=== PATIENT | male | born 1960 | race Two or more races ===

== ENCOUNTER 2019-07-23 14:53 | Emergency (ER) | payer SELFPAY ==
[~2019-07-23] VITALS: Ht 154.9 cm; Wt 70.0 kg
[~2019-07-23 14:53] MED LIST: AMOX-422 PO; NO HOME MEDS; NORCO10T PO; PANT40TA39 PO
[2019-07-23] MEDS ORDERED: normal saline 1000ML IV soln IVB ONE (15:50)
[2019-07-23] MEDS ORDERED: ketorolac tromethamine 15mg/ml inj. IV ONE (15:50)
[2019-07-23 16:19] LABS: BASOPHILS # (AUTO) 0.1 X10'3 (0-0.2); BASOPHILS % (AUTO) 0.7 % (0-1); EOSINOPHILS # (AUTO) 0.3 X10'3 (0-0.9); EOSINOPHILS % (AUTO) 3.2 % (0-6); HEMATOCRIT 43.4 % (42.0-52.0); HEMOGLOBIN 14.7 g/dl (14.0-17.9); LYMPHOCYTES # (AUTO) 2.6 X10'3 (1.1-4.8); LYMPHOCYTES % (AUTO) 30.6 % (21-51); MEAN CORPUSCULAR VOLUME 88.2 FL (78-98); MEAN PLATELET VOLUME 7.8 FL (7.4-10.4); MONOCYTES # (AUTO) 0.6 X10'3 (0-0.9); MONOCYTES % (AUTO) 7.2 % (2-12); NEUTROPHILS # (AUTO) 4.9 X10'3 (1.8-7.7); NEUTROPHILS % (AUTO) 58.3 % (42-75); PLATELET COUNT 279 X10'3 (140-440); RED BLOOD COUNT 4.91 X10'6 (4.70-6.10); RED CELL DISTRIBUTION WIDTH 13.4 % (11.5-14.5); WHITE BLOOD COUNT 8.3 X10'3 (4.5-11.0)
[2019-07-23 16:38] LABS: ALANINE AMINOTRANSFERASE 28 U/L (12-78); ALBUMIN 3.8 G/DL (3.4-5.0); ALKALINE PHOSPHATASE 104 IU/L (46-116); ANION GAP 11 (8-16); ASPARTATE AMINO TRANSFERASE 19 U/L (10-37); BILIRUBIN,TOTAL 0.3 MG/DL (0.1-1.0); BLOOD UREA NITROGEN 7 MG/DL (7-18); BUN/CREATININE RATIO 9.1 (5.4-32.0); CALCIUM 8.4 MG/DL (8.5-10.1); CHLORIDE 105 MMOL/L (99-107); CREATININE 0.77 MG/DL (0.60-1.10); GLUCOSE 91 MG/DL (70-104); POTASSIUM 3.8 MMOL/L (3.5-5.1); SODIUM 141 MMOL/L (135-145); TOTAL CARBON DIOXIDE 25.1 MMOL/L (24-32); TOTAL PROTEIN 7.6 G/DL (6.4-8.2); eGFR > 90 ML/MIN
[2019-07-23 18:27] VITALS: BP 137/92
== END 2019-07-23 18:30 | disposition home or self-care (01) ==
LOC: ER 14:54
DX: R42 Dizziness and giddiness (principal); R51 Headache; R07.89 Other chest pain; H53.8 Other visual disturbances; J02.9 Acute pharyngitis, unspecified; E78.00 Pure hypercholesterolemia, unspecified; I10 Essential (primary) hypertension; F10.99 Alcohol use, unspecified with unspecified alcohol-induced disorder; Z77.098 Contact with and (suspected) exposure to other hazardous, chiefly nonmedicinal, chemicals; Z98.890 Other specified postprocedural states; Z79.899 Other long term (current) drug therapy; Y90.9 Presence of alcohol in blood, level not specified
CPT/HCPCS: 36415; 80053; 85025; 93005; 96361; 96374; 99284; J1885; J7030

== ENCOUNTER 2022-02-11 08:52 | Emergency (ER) | payer OTHER ==
[~2022-02-11] VITALS: Ht 152.4 cm; Wt 75.0 kg
[2022-02-11 09:14] VITALS: BP 122/86
--- NOTE | 2022-02-11 10:03 | NUR ---
NOT IN LOBBY
[2022-02-11] MEDS ORDERED: ketorolac trometh. 30mg/ml inj. IM ONE (10:35)
[2022-02-11] MEDS ORDERED: ketorolac trometh inj. 60 MG/2 ML VIAL IM ONE (10:35)
[2022-02-11] MEDS ORDERED: CYCL-1 PO (10:46)
== END 2022-02-11 10:55 | disposition home or self-care (01) ==
LOC: ER 08:53
DX: M54.50 Low back pain, unspecified (principal); G89.29 Other chronic pain; E78.00 Pure hypercholesterolemia, unspecified; I10 Essential (primary) hypertension; Z98.890 Other specified postprocedural states; Z72.89 Other problems related to lifestyle; Z79.2 Long term (current) use of antibiotics; Z79.899 Other long term (current) drug therapy
CPT/HCPCS: 72100; 96372; 99283; J1885

== ENCOUNTER 2022-05-14 10:19 | Emergency (ER) | payer BC, OTHER ==
[~2022-05-14] VITALS: Ht 167.6 cm; Wt 75.0 kg
[~2022-05-14 10:19] MED LIST changes: +CYCL-1 PO
[2022-05-14 12:26] LABS: BASOPHILS % (AUTO) 0.4 % (0-1); EOSINOPHILS # (AUTO) 0.1 X10'3 (0-0.9); EOSINOPHILS % (AUTO) 1.5 % (0-6); HEMATOCRIT 42.8 % (42.0-52.0); HEMOGLOBIN 14.4 g/dl (14.0-17.9); LYMPHOCYTES # (AUTO) 2.5 X10'3 (1.1-4.8); LYMPHOCYTES % (AUTO) 33.4 % (21-51); MEAN CORPUSCULAR HEMOGLOBIN 29.3 PG (27.0-31.0); MEAN CORPUSCULAR HGB CONC 33.6 g/dL (33.0-36.5); MEAN CORPUSCULAR VOLUME 87.2 FL (78-98); MEAN PLATELET VOLUME 7.8 FL (7.4-10.4); MONOCYTES # (AUTO) 0.8 X10'3 (0-0.9); MONOCYTES % (AUTO) 11.1 % (2-12); NEUTROPHILS % (AUTO) 53.6 % (42-75); PLATELET COUNT 261 X10'3 (140-440); RED BLOOD COUNT 4.91 X10'6 (4.70-6.10); RED CELL DISTRIBUTION WIDTH 14.2 % (11.5-14.5); WHITE BLOOD COUNT 7.5 X10'3 (4.5-11.0)
[2022-05-14 12:37] LABS: D-DIMER 0.23 MG/L FEU (0-0.50)
[2022-05-14 12:44] LABS: ALANINE AMINOTRANSFERASE 33 U/L (12-78); ALBUMIN 3.6 G/DL (3.4-5.0); ALBUMIN/GLOBULIN RATIO 0.9 (1.1-1.5); ALKALINE PHOSPHATASE 85 IU/L (46-116); ANION GAP 5 (8-16); ASPARTATE AMINO TRANSFERASE 23 U/L (10-37); BILIRUBIN,TOTAL 0.3 MG/DL (0.1-1.0); BLOOD UREA NITROGEN 12 MG/DL (7-18); BUN/CREATININE RATIO 12.8 (5.4-32.0); CALCIUM 8.5 MG/DL (8.5-10.1); CHLORIDE 106 MMOL/L (99-107); CREATININE 0.94 MG/DL (0.60-1.10); GLUCOSE 105 MG/DL (70-104); POTASSIUM 3.8 MMOL/L (3.5-5.1); SODIUM 139 MMOL/L (135-145); TOTAL CARBON DIOXIDE 27.8 MMOL/L (24-32); TOTAL PROTEIN 7.6 G/DL (6.4-8.2); eGFR 82 ML/MIN
[2022-05-14 13:09] VITALS: BP 150/94
--- NOTE | 2022-05-14 13:43 | NUR ---
cleared for dishcarge at this time. advised to follow up with pcp and return if conditon worsens. no other complaints or concerns at this time following dishcarge teaching.
[2022-05-14] MEDS ORDERED: ALBU6.7H9 INH (13:47)
[2022-05-14] MEDS ORDERED: PRED20TA PO (13:47)
== END 2022-05-14 13:53 | disposition home or self-care (01) ==
LOC: ER 10:19
DX: J45.909 Unspecified asthma, uncomplicated (principal); I10 Essential (primary) hypertension; E78.00 Pure hypercholesterolemia, unspecified; Z88.0 Allergy status to penicillin; Z79.899 Other long term (current) drug therapy; Z79.2 Long term (current) use of antibiotics
CPT/HCPCS: 36415; 71045; 80053; 83880; 84484; 85025; 85379; 93005; 99285

== ENCOUNTER 2022-11-23 18:52 | Emergency (ER) | payer BC, MEDICAID, SELFPAY ==
[~2022-11-23] VITALS: Ht 154.9 cm; Wt 80.0 kg
[~2022-11-23 18:52] MED LIST changes: +ALBU6.7H14 INH
[2022-11-23 19:08] VITALS: BP 148/89
[2022-11-23] MEDS ORDERED: NAPR-56 PO (20:47)
[2022-11-23] MEDS ORDERED: DICL100G30 TOP (20:47)
[2022-11-23] MEDS ORDERED: ketorolac trometh inj. 60 MG/2 ML VIAL IM ONE (20:50)
== END 2022-11-23 21:03 | disposition home or self-care (01) ==
LOC: ER 18:53
DX: S83.92XA Sprain of unspecified site of left knee, initial encounter (principal); M25.562 Pain in left knee; E78.00 Pure hypercholesterolemia, unspecified; I10 Essential (primary) hypertension; M19.90 Unspecified osteoarthritis, unspecified site; G89.29 Other chronic pain; Z98.890 Other specified postprocedural states; Z72.89 Other problems related to lifestyle; Z79.2 Long term (current) use of antibiotics; Z79.899 Other long term (current) drug therapy; X58.XXXA Exposure to other specified factors, initial encounter; Y93.89 Activity, other specified; Y92.89 Other specified places as the place of occurrence of the external cause; Y99.8 Other external cause status
CPT/HCPCS: 73564; 96372; 99283; J1885

== ENCOUNTER → 2024-03-17 | Outpatient (CLI) | payer MEDICAID ==
[~2024-03-17] VITALS: Ht 154.9 cm; Wt 77.1 kg
[~2024-03-17] MED LIST changes: +DICL100G59 TOP
[2024-03-17 12:03] VITALS: PULSE 82; RESP 16; O2SAT 97
[2024-03-17] MEDS: albuterol 2.5 MG/3 ML nebule NEB ONE (12:14)
== END | disposition home or self-care (01) ==
LOC: RT 11:26
PROVIDERS: ATTEND Family Medicine
DX: R06.02 Shortness of breath (principal)
CPT/HCPCS: 94060; 94729; 94760

== ENCOUNTER → 2025-03-02 | Outpatient (CLI) | payer MEDICAID ==
[~2025-03-02] MED LIST changes: +GADOTERATE MEGLUMINE 7.5 MMOL/15 ML VIAL IV ONE; +LIDOcaine 1% 30ml preserv. free vial ONE; +LIDOcaine 1%/PF 5ML 10 MG/ML VIAL ONE; +iohexol 300 MG/1 ML 50ml polymer ONE
--- NOTE | 2025-03-02 08:11 | RADIOLOGY REPORT ---
ANGIO ARTHROGRAM (A) Date: 03/02/2025 07:16 AM Clinical History: RIGHT HIP PAIN Comparison: None Procedure: Verbal and written informed consent were obtained from the patient for the procedure of right hip fl uoroscopically guided arthrogram, after the procedure, risks, and benefits of the procedure were expl ained to the patient. Risks include bleeding, infection, reaction to injected medications, and damag e to surrounding anatomic structures. The patient's questions were answered. The patient's most rec ent medical history was reviewed. A time out was performed to verify the patient's name, date of , and correct location of the pro cedure, prior to initiation of the procedure. The patient was placed supine on the fluoroscopic table and the area overlying the right hip was pre pped and draped in the usual sterile fashion. The patient tolerated the procedure well. There were no immediate complications. Home-care instruct ions were reviewed with the patient prior to the patient's discharge from the fluoroscopy suite. The patient verbally affirmed understanding of these instructions. Impression: Technically successful fluoroscopically guided RIGHT HIP arthrogram. The patient was transported to MRI for further imaging at the completion of the procedure. Procedure by Dr. Valdez
--- NOTE | 2025-03-02 11:12 | RADIOLOGY REPORT ---
CLINICAL INFORMATION: 64 years old, Male; PAIN IN RIGHT HIP. TECHNIQUE: Multisequence multiplanar MR arthrogram images of the right hip were obtained after the uneventful intra-articular injection of dilute gadolinium contrast under fluoroscopic guidance. Refer to the separately dictated conventional arthrogram report for details concerning the contrast inject ion. COMPARISON: Correlation made to same day arthrogram injection images. FINDINGS: BONES: No acute fracture or osteonecrosis. JOINT: There is adequate distention of the right hip joint with contrast. No synovitis or loose carson s visualized. No labral tear identified. [id number]-[id number] joint space narrowing in both hips. BURSAE: Mild edema and trace fluid in the bilateral trochanteric bursae TENDONS: Mild tendinosis of the distal gluteus medius and minimus tendons. Origins of the rectus femo ris tendon and hamstring tendons are intact. Distal insertion of the iliopsoas tendon is intact. MUSCLES: Normal muscle bulk. No significant atrophy. No evidence of muscle strain or tear. OTHER: No other significant findings. IMPRESSION: 1. No labral tear identified. 2. No evidence of acute osseous abnormality. 3. Mild bilateral trochanteric bursitis. 4. Mild tendinosis of the distal gluteus medius and minimus tendons. 5. Myua-yp-nshvmxov joint space narrowing in both hips.
== END | disposition home or self-care (01) ==
LOC: RAD 05:52
PROVIDERS: ATTEND Orthopaedic Surgery
DX: M25.551 Pain in right hip (principal); M70.61 Trochanteric bursitis, right hip; M25.852 Other specified joint disorders, left hip; M25.851 Other specified joint disorders, right hip
CPT/HCPCS: 27093; 73722; 77002; A9575; J2003; J3490; Q9967